=== PATIENT | female | born 1990 | race Caucasian/White ===

== ENCOUNTER 2017-01-14 07:53 | Emergency (ER) | payer BC, OTHER ==
[~2017-01-14] VITALS: Ht 162.6 cm; Wt 102.8 kg
[2017-01-14 07:57] VITALS: TEMP 36.7; Ht 162.6 cm; Wt 102.8 kg
[2017-01-14] MEDS ORDERED: SODIUM CHLORIDE 0.9% 1000ML 1,000 ML IV STA (08:11)
[2017-01-14] MEDS ORDERED: ONDANSETRON INJ 2 MG/ML 2 ML VIAL IV STA (08:11)
[2017-01-14] MEDS ORDERED: SODIUM CHLORIDE 0.9% 1000ML 1,000 ML IV ONE (08:11)
[2017-01-14] MEDS ORDERED: KETOROLAC TROMETHAMINE 30 MG/ML VIAL IV STA (08:11)
--- NOTE | 2017-01-14 08:17 | EMERGENCY ROOM VISIT NOTE ---
History Report prepared by Eder: Chaparrita Riojas Under the Supervision of: Dr. Carlos Moyer M.D. First contact with patient: 07:58 Chief Complaint: ABDOMINAL PAIN Stated Complaint: SEVERE STOMACH PAIN Nursing Triage Summary: pt reports abdominal diffuse abdominal pain with diarrhea X 2 days , started last night with additional NV History of Present Illness The patient is a 27 year old female who presents to the Emergency Room with complaints of worsening diffuse abdominal pain for the past two days. She has a history of IBS and states that she has chronic diarrhea and often has abdominal pains. Over the past two days she has been experiencing pain that is much more severe. She states, "It feels like my stomach is in a big knot." She woke up with pain around 1:30am today. She had multiple bowel movements and felt slightly better but still has pain. Laying down exacerbates her pain. The patient is complaining of nausea and had two episodes of vomiting last night. 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 She rates her current pain as an 8/10 in severity. The patient denies back pain, urinary symptoms, hematochezia, and melena. She denies chance of and has a history of a tubal ligation. She has had 3 C-sections and denies any other abdominal surgeries. The patient denies any current chest pain, but states that she had some "weird chest pains" last week. Source of History: patient Onset: 2 days ago Position: abdomen Symptom Intensity: 8/10 Timing: worsening Modifying Factors (Worsening): other (laying flat) Modifying Factors (Relieving): defecation Associated Symptoms: + chest pain, + nausea, + vomiting, No back pain, No melena, No hematochezia, No urinary symptoms Review of Systems See HPI for pertinent positives & negatives. A total of 10 systems reviewed and were otherwise negative. Past Medical & Surgical Medical Problems: (1) (2) uterine contractions in second trimester, antepartum Surgical Problems: (1) Previous section Old medical records were reviewed. Nurse's notes were reviewed and I agree with. Family History Cancer Hypertension Social History Smoking Status: Never Smoker Alcohol Use: none Marital Status: single Housing Status: lives with family Occupation Status: employed Current/Historical Medications No Active Prescriptions or Reported Meds Allergies Coded Allergies: No Known Allergies (Unverified , 01/14/17) Physical Exam Vital Signs Date Time Temp Pulse Resp B/P (MAP) Pulse Ox O2 Delivery O2 Flow Rate FiO2 01/14/17 12:49 64 20 133/71 97 Room Air 01/14/17 11:39 59 18 131/74 99 Room Air 01/14/17 09:55 61 18 133/71 98 Room Air 01/14/17 07:57 36.7 83 18 121/81 98 Room Air Physical Exam General: Well developed well nourished non ill appearing young female in no acute distress, breathing comfortably on room air. Normal speech HEENT: Normal cephalic atraumatic. Pupils are equal round and reactive to light. Extraocular movements are intact. Oropharynx is pink with moist mucous membranes. No swelling of the mouth lips or tongue. Neck: Supple with a midline trachea. No meningeal signs or stiffness, no JVD or bruits. No Stridor. Chest: Clear to auscultation bilaterally. No wheezes or rhonchi. No increased work of breathing. Heart: regular rate and rhythm. Abdomen: Soft, mildly diffusely tender, no peritonitis, nondistended without rebound guarding or rigidity. Extremities: No cyanosis clubbing or edema. No calf tenderness or assymetry Spine/Back. Non tender to palpation. No CVA tenderness Skin: Good turgor without rashes. Neurologic exam: Cranial nerves two through 12 are intact. Motor and sensation are intact and symmetrical throughout. Medical Decision & Procedures ER Provider Diagnostic Interpretation: Radiology results as stated below per my review and radiologist interpretation: ABDOMEN AND PELVIS CT WITH IV CONTRAST CT DOSE: 809.42 mGy.cm HISTORY: Lower abdominal pain. eval for appy, diverticulitis TECHNIQUE: Multiaxial CT images of the abdomen and pelvis were performed following the use of intravenous contrast. A dose lowering technique was utilized adhering to the principles of ALARA. COMPARISON STUDY: Abdomen and pelvis CT 12/18/2013. FINDINGS: Mild dependent changes seen at the lung bases. The spleen remains mildly enlarged measuring 13.5 cm in length. The liver, gallbladder, left kidney, adrenal glands, and pancreas are unremarkable. No retroperitoneal lymphadenopathy. A 3 mm stone within the lower pole of the right kidney. No ureteral stones. No hydronephrosis. The bladder, uterus, and ovaries are within normal limits. No pelvic free fluid. No bowel wall thickening or obstruction. Normal caliber appendix. No periappendiceal fat stranding. IMPRESSION: 1. No bowel wall thickening or obstruction. 2. Normal appendix. 3. Stable mild splenomegaly. 4. Right-sided nephrolithiasis. No hydronephrosis. Electronically signed by: Luis Angel Chery M.D. 01/14/2017 11:32 AM Laboratory Results 01/14/17 08:25 Red Blood Count 4.69, Mean Corpuscular Volume 86.4, Mean Corpuscular Hemoglobin 29.0, Mean Corpuscular Hemoglobin Concent 33.6, Mean Platelet Volume 10.2, Neutrophils (%) (Auto) 77.0, Lymphocytes (%) (Auto) 16.3, Monocytes (%) (Auto) 5.7, Eosinophils (%) (Auto) 0.6, Basophils (%) (Auto) 0.3, Neutrophils # (Auto) 6.02, Lymphocytes # (Auto) 1.28, Monocytes # (Auto) 0.45, Eosinophils # (Auto) 0.05, Basophils # (Auto) 0.02 01/14/17 08:25 Test 01/14/17 08:15 01/14/17 08:25 01/14/17 08:31 Urine Color YELLOW Urine Appearance CLEAR (CLEAR) Urine pH 7.5 (4.5-7.5) Urine Specific [place] 1.020 (1.000-1.030) Urine Protein NEG (NEG) Urine Glucose (UA) NEG (NEG) Urine Ketones NEG (NEG) Urine Occult Blood TRACE (NEG) Urine Nitrite NEG (NEG) Urine Bilirubin NEG (NEG) Urine Urobilinogen NEG (NEG) Urine Leukocyte Esterase NEG (NEG) Urine WBC (Auto) 1-5 /hpf (0-5) Urine RBC (Auto) 0-4 /hpf (0-4) Urine Hyaline Casts (Auto) 1-5 /lpf (0-5) Urine Epithelial Cells (Auto) >30 /lpf (0-5) Urine Bacteria (Auto) 1+ (NEG) White Blood Count 7.83 K/uL (4.8-10.8) Red Blood Count 4.69 M/uL (4.2-5.4) Hemoglobin 13.6 g/dL (12.0-16.0) Hematocrit 40.5 % (37-47) Mean Corpuscular Volume 86.4 fL (80-100) Mean Corpuscular Hemoglobin 29.0 pg (25-34) Mean Corpuscular Hemoglobin Concent 33.6 g/dl (32-36) Platelet Count 247 K/uL (130-400) Mean Platelet Volume 10.2 fL (7.4-10.4) Neutrophils (%) (Auto) 77.0 % Lymphocytes (%) (Auto) 16.3 % Monocytes (%) (Auto) 5.7 % Eosinophils (%) (Auto) 0.6 % Basophils (%) (Auto) 0.3 % Neutrophils # (Auto) 6.02 K/uL (1.4-6.5) Lymphocytes # (Auto) 1.28 K/uL (1.2-3.4) Monocytes # (Auto) 0.45 K/uL (0.11-0.59) Eosinophils # (Auto) 0.05 K/uL (0-0.5) Basophils # (Auto) 0.02 K/uL (0-0.2) RDW Standard Deviation 41.7 fL (36.4-46.3) RDW Coefficient of Variation 13.3 % (11.5-14.5) Immature Granulocyte % (Auto) 0.1 % Immature Granulocyte # (Auto) 0.01 K/uL (0.00-0.02) Anion Gap 6.0 mmol/L (3-11) Est Creatinine Clear Calc Drug Dose 133.3 ml/min Estimated GFR () 128.7 Estimated GFR (Non- 111.0 BUN/Creatinine Ratio 14.7 (10-20) Calcium Level 9.1 mg/dl (8.5-10.1) Total Bilirubin 0.3 mg/dl (0.2-1) Direct Bilirubin < 0.1 mg/dl (0-0.2) Aspartate Amino Transf (AST/SGOT) 15 U/L (15-37) Alanine Aminotransferase (ALT/SGPT) 20 U/L (12-78) Alkaline Phosphatase 87 U/L (45-117) Total Protein 8.3 gm/dl (6.4-8.2) Albumin 4.0 gm/dl (3.4-5.0) Lipase 111 U/L (73-393) Human Chorionic Gonadotropin, Qual NEG (NEG) Bedside Troponin I < 0.030 ng/ml (0-0.045) Laboratory studies as stated above per my review. Medications Administered Medications (Trade) Dose Ordered Sig/Faiza Route Start Time Stop Time Status Last Admin Dose Admin Sodium Chloride 1,000 ml @ 999 mls/hr Q1H1M STAT IV 01/14/17 08:11 01/14/17 09:11 DC 01/14/17 08:11 999 MLS/HR Sodium Chloride 1,000 ml @ 200 mls/hr Q5H ONCE IV 01/14/17 08:11 01/14/17 13:01 DC 01/14/17 08:11 200 MLS/HR Ketorolac Tromethamine (Toradol Inj) 30 mg NOW STAT IV 01/14/17 08:11 01/14/17 08:12 DC 01/14/17 08:36 30 MG Ondansetron HCl (Zofran Inj) 4 mg NOW STAT IV 01/14/17 08:11 01/14/17 08:12 DC 01/14/17 08:36 4 MG Morphine Sulfate (MoRPHine SULFATE INJ) 4 mg NOW STAT IV 01/14/17 10:25 01/14/17 10:26 DC 01/14/17 10:33 4 MG ECG Indication: abdominal pain Rate (beats per minute): 78 Rhythm: normal sinus Findings: no acute ischemic change, no ectopy Comparison ECG Date: no prior available ED Course 0804: Past medical records reviewed. The patient was evaluated in room A12B, and a complete history and physical examination were performed. 0811: Zofran 4 mg IV, Toradol 30 mg IV, NSS 1000 ml @ 200 mls/hr IV, NSS 1000 ml @ 999 mls/hr IV 0856: I reassessed the patient and she is resting comfortably. 1021: The patient is complaining of worsening pain. 1025: Morphine sulfate 4 mg IV 1234: I reassessed the patient at this time. She is feeling better and resting comfortably. I discussed the results and treatment plan with the patient. I answered all pertaining questions that she had. She expressed understanding and verbalized agreement. The patient will be discharged home. Medical Decision Differential diagnoses includes IBS, infection, gallbladder disease, diverticulitis, UTI, . This patient comes in as described above. She was placed in room A12. She is here for treatment and evaluation of diffuse abdominal pain. She does have a history of IBS. On exam, she is minimally diffusely tender and has no peritonitis. IV access established was hydrated with normal saline. She was given Toradol 30 mg IV and Zofran 4 mg IV. Blood work was obtained as well as urinalysis and culture and test. I did an EKG as well as she said she had chest pain a couple days ago. EKG is unremarkable and does not suggest acute coronary syndrome or arrhythmia. She has no fever or white count to suggest infection. She has no acute electrolyte or metabolic abnormality. She is not . She's had nothing to suggest UTI. With her symptoms persisting, I did do a CAT scan and she has no acute intra-abdominal processes. She has no findings suggest infection or appendicitis. She did receive IV morphine and IV Zofran as feeling much better. This may be related or IBS. I will have her drink plenty of fluids and use [id number] pain medication but do not exceed the [id number] recommended dosages. Return if increasing pain, worsening of symptoms, fever or chills, any new problems or concerns. The patient and her were happy the plan and she was discharged to home. Medication Reconcilliation Current Medication List: was personally reviewed by me Blood Pressure Screening Patient's blood pressure: Normal blood pressure Impression Primary Impression: Diffuse abdominal pain Scribe Attestation The scribe's documentation has been prepared under my direction and personally reviewed by me in its entirety. I confirm that the note above accurately reflects all work, treatment, procedures, and medical decision making performed by me. Departure Information Dispostion Home / Self-Care Prescriptions No Active Prescriptions or Reported Meds Referrals Nic Bal M.D. (PCP) Forms HOME CARE DOCUMENTATION FORM, IMPORTANT VISIT INFORMATION Patient Instructions My [facility] Additional Instructions Rest. Drink plenty of fluids. Return if: Worsening of symptoms, fever or chills, increasing pain, not tolerating fluids, vomiting, any new problems concerns Use [id number] ibuprofen and/or acetaminophen/Tylenol Do not exceed the [id number] recommended dosages and do not take with any other medications that contain acetaminophen/Tylenol Follow-up with your doctor in 1-2 days for recheck
[2017-01-14 08:35] LABS: BASO % 0.3 %; BASO ABS # 0.02 K/uL (0-0.2); COMPLETE YES; EOS % 0.6 %; HEMATOCRIT 40.5 % (37-47); IG% 0.1 %; LYMPH % 16.3 %; LYMPH ABS # 1.28 K/uL (1.2-3.4); MEAN CELL VOLUME 86.4 fL (80-100); MEAN CORPUSCULAR HGB CONC 33.6 g/dl (32-36); MEAN PLATELET VOLUME 10.2 fL (7.4-10.4); MONO % 5.7 %; PLATELET COUNT 247 K/uL (130-400); RED BLOOD COUNT 4.69 M/uL (4.2-5.4); WHITE BLOOD COUNT 7.83 K/uL (4.8-10.8)
[2017-01-14 08:35] LABS: URINE APPEARANCE CLEAR (CLEAR); URINE BILIRUBIN NEG (NEG); URINE COLOR YELLOW; URINE EPITHELIAL CELL AUTO >30 /lpf (0-5); URINE NITRITE NEG (NEG); URINE PH 7.5 (4.5-7.5); UROBILINOGEN NEG (NEG)
[2017-01-14 08:41] LABS: MANUAL MICROSCOPIC REQUIRED? NO; REVIEW REQ? YES
[2017-01-14 08:49] LABS: PREG INTERNAL NEGATIVE QC NEG CLEAR BACKGROUND; PREG INTERNAL POSITIVE QC POS CONTROL LINE
[2017-01-14 08:54] LABS: BUN/CREATININE RATIO 14.7 (10-20); CALCIUM 9.1 mg/dl (8.5-10.1); CREATININE 0.74 mg/dl (0.60-1.20)
[2017-01-14 09:07] LABS: ALKALINE PHOSPHATASE 87 U/L (45-117); ALT/SGPT 20 U/L (12-78); AST/SGOT 15 U/L (15-37)
[2017-01-14] MEDS ORDERED: MoRPHine SULFATE 4 MG/ML 1 ML CARP\\VIAL IV STA (10:25)
--- NOTE | 2017-01-14 11:33 | DIAGNOSTIC IMAGING REPORT ---
ABDOMEN AND PELVIS CT WITH IV CONTRAST CT DOSE: 809.42 mGy.cm HISTORY: Lower abdominal pain. eval for appy, diverticulitis TECHNIQUE: Multiaxial CT images of the abdomen and pelvis were performed following the use of intravenous contrast. A dose lowering technique was utilized adhering to the principles of ALARA. COMPARISON STUDY: Abdomen and pelvis CT 12/18/2013. FINDINGS: Mild dependent changes seen at the lung bases. The spleen remains mildly enlarged measuring 13.5 cm in length. The liver, gallbladder, left kidney, adrenal glands, and pancreas are unremarkable. No retroperitoneal lymphadenopathy. A 3 mm stone within the lower pole of the right kidney. No ureteral stones. No hydronephrosis. The bladder, uterus, and ovaries are within normal limits. No pelvic free fluid. No bowel wall thickening or obstruction. Normal caliber appendix. No periappendiceal fat stranding. IMPRESSION: 1. No bowel wall thickening or obstruction. 2. Normal appendix. 3. Stable mild splenomegaly. 4. Right-sided nephrolithiasis. No hydronephrosis. Electronically signed by: Luis Angel Chery M.D. 01/14/2017 11:32 AM Dictated Date/Time: 01/14/2017 11:26 AM
[2017-01-14 12:49] VITALS: BP 133/71; PULSE 64; O2SAT 97
== END 2017-01-14 12:54 | disposition home or self-care (01) ==
LOC: C.EDB 07:54 → C.EDA 12:54
DX: R10.9 Unspecified abdominal pain (principal); Z82.49 Family history of ischemic heart disease and other diseases of the circulatory system

== ENCOUNTER 2020-07-13 22:21 | Observation (INO) ==
[2020-07-13] MEDS ORDERED: ONDANSETRON INJ 2 MG/ML 2 ML VIAL IV STA (22:42)
[2020-07-13] MEDS ORDERED: ACETAMINOPHEN 1,000 MG/100 ML VIAL IV STA (22:42)
[2020-07-13] MEDS ORDERED: HYDROmorphone INJ 1 MG/ML SYRINGE IV STA (22:42)
[2020-07-13] MEDS: SODIUM CHLORIDE 0.9% 1000ML 1,000 ML IV SCH (23:10)
[2020-07-13] MEDS ORDERED: CEFEPIME 2,000 MG/20 ML VIAL IV STA (23:14)
[2020-07-13 23:19] LABS: Basophils # (auto) 0.01 K/uL (0-0.2); Basophils % (auto) 0.1 %; Hematocrit (blood only) 35.5 % (37-47); Hemoglobin 11.8 g/dL (12.0-16.0); Immature Granulocytes # (auto) 0.02 K/uL (0.00-0.02); Immature Granulocytes % (auto) 0.1 %; Lymphocytes % (auto) 2.8 %; Mean Corpuscular Hemoglobin 28.6 pg (25-34); Mean Corpuscular Hgb Conc 33.2 g/dL (32-36); Monocytes % (auto) 0.7 %; Neutrophils # (auto) 13.99 K/uL (1.4-6.5); Neutrophils % (auto) 96.3 %; Platelet Count 227 K/uL (130-400); RDW Coefficient of Variation 13.3 % (11.5-14.5); RDW Standard Deviation 42.1 fL (36.4-46.3); Red Blood Count 4.13 M/uL (4.2-5.4); White Blood Count 14.52 K/uL (4.8-10.8)
[2020-07-13 23:37] LABS: Albumin Level 3.4 gm/dl (3.4-5.0); BUN Creatinine Ratio 11.2 (10-20); Calcium 8.8 mg/dl (8.5-10.1); Creatinine Clr Calc Pharmacy 123.2 ml/min; Est GFR (African American) 100.8; Potassium 3.6 mmol/L (3.5-5.1)
[2020-07-13 23:40] LABS: Albumin Globulin Ratio 0.8 (0.9-2); Bilirubin,Total 0.6 mg/dl (0.2-1); Globulin 4.1 gm/dl (2.5-4.0); Total Protein 7.5 gm/dl (6.4-8.2)
[2020-07-14] MEDS: SODIUM CHLORIDE 0.9% 1000ML 1,000 ML IV SCH ×3 (00:13→15:31)
[2020-07-14 00:24] LABS: Appearance Urine Clear (Clear); Bacteria Urine Automated 4+ (Negative); Bilirubin Urine Negative (Negative); Blood Urine 2+ (Negative); Color Urine Yellow; Epithelial Cell Urine Auto >30 /lpf (0-5); Glucose Urine UA Negative (Negative); Ketones Urine Negative (Negative); Leukocyte Esterase Urine 1+ (Negative); Nitrite Urine Positive (Negative); Protein Urine Trace (Negative); RBC Urine Automated 0-4 /hpf (0-4); Urobilinogen Urine Negative (Negative); WBC Urine Automated >30 /hpf (0-5); pH Urine 5.5 (4.5-7.5)
--- NOTE | 2020-07-14 00:40 | Emergency Department Note ---
History of Present Illness General Chief complaint: Kidney Stone Stated complaint: kidney stone Time Seen by Provider: 07/13/20 22:30 Source: patient Mode of arrival: ambulatory Limitations: no limitations History of Present Illness Maximum Pain Intensity: 10 This patient is a 30-year-old female who presents to the emergency department for evaluation of fever and kidney stone. Patient states that she was seen her earlier today for a right-sided kidney stone. Pain was mostly controlled when she was sent home, however after returning home she developed a fever and vomiting. She has been unable to keep anything down including her medications. She states that she had chills and felt feverish, and temperature at home was 103 F. She has tried taking 2 oxycodone as well as 2 ibuprofen but was unable to keep them down. Patient states that pain is uncontrolled and rates her current discomfort a 10/10. She did not have a fever prior to her earlier visit. She states that nothing has helped her pain. She denies any history of kidney stones prior to this. Home Medications Medication Instructions Recorded Confirmed Type oxycodone 5 mg PO Q4H PRN #15 tab 07/13/20 07/13/20 Rx sertraline 50 mg PO HS 07/13/20 07/13/20 History Allergies Allergy/AdvReac Type Severity Reaction Status Date / Time No Known Allergies Allergy Verified 07/13/20 22:47 Past Med/Surg History Medical History (Updated 07/14/20 @ 06:12 by Lucina Herrera PA-C) Depression History of pneumonia IBS (irritable bowel syndrome) uterine contractions in second trimester, antepartum Right lower quadrant abdominal pain Vaginal bleeding Surgical History Previous section Family History Other Hypertension Social History Smoking Status: Never smoker Second Hand Exposure: No; Do You Dip or Chew Tobacco: No; Tobacco Cessation Education Requested by Patient: No Hx Alcohol Use: Yes Hx Substance Use: No Preferred Language: Sudanese Beliefs That Will Affect Care: None marital status: Current Living Situation: Family current occupational status: employed Other Information That Helps Us Care for You: No Feels Safe at Home: Yes Safety Concerns: Feels Safe At This Time Assistive Devices: None Review of Systems A total of 10 systems reviewed and were otherwise negative Physical Exam Vital Signs Vital Signs - 24 hr 07/13/20 22:23 07/13/20 22:33 07/13/20 22:52 Temperature 35.9 C L 37.2 C Temperature Source Temporal Artery Scan Oral Pulse Rate 145 H 131 H Pulse Rate from SpO2 Sensor 130 H Respiratory Rate 14 20 Respiratory Depth Normal Blood Pressure 132/82 125/85 Blood Pressure Mean 98 98 Pulse Oximetry 95 95 Oxygen Delivery Method Room Air Sepsis Recent Fever Within 48 Hours Yes Sepsis New/Unexplained Change in Mental Status No Sepsis Action Taken by Nursing Physician Notified 07/13/20 23:14 07/13/20 23:30 07/14/20 00:30 Temperature Temperature Source Pulse Rate 111 H 103 H 96 H Pulse Rate from SpO2 Sensor 111 H 105 H 97 H Respiratory Rate 20 20 21 Respiratory Depth Blood Pressure 103/55 L 111/55 L 117/56 L Blood Pressure Mean 71 73 76 Pulse Oximetry 94 94 96 Oxygen Delivery Method Room Air Sepsis Recent Fever Within 48 Hours Sepsis New/Unexplained Change in Mental Status Sepsis Action Taken by Nursing VITALS: Vitals are noted on the nurse's note and reviewed by myself. Vital signs stable. GENERAL: This is a 30-year-old female, ill-appearing, well-developed well- nourished. SKIN: The skin was without rashes. EYES: Pupils equal round and reactive to light and accommodation. NOSE: Patent, turbinates without inflammation or discharge. MOUTH: Mucous membranes slightly dry. NECK: Supple without nuchal rigidity. No lymphadenopathy. HEART: Regular rate and rhythm without murmurs gallops or rubs. LUNGS: Clear to auscultation bilaterally without wheezes, rales or rhonchi. ABDOMEN: Positive bowel sounds x 4. Soft, mild tenderness in the right lower quadrant. No guarding or rebound tenderness. Right CVA tenderness. EXTREMITIES: No pitting edema of the lower extremities. NEURO: Patient was alert and oriented to person place and time. Course Consultations Consultation #1: Dr. Gallagher - urology Administered Medications Acetaminophen (Acetaminophen 325 Mg Tab) 650 mg PO Q4H PRN PRN Reason: pain/fever Stop: 08/13/20 01:26 Last Admin: 07/14/20 08:18 Dose: 650 mg Documented by: [id number] Ceftriaxone Sodium 2,000 mg/ (Dextrose) 70 mls @ 100 mls/hr IV DAILY PAMELA; Protocol Stop: 07/24/20 08:59 Last Infusion: 07/14/20 09:08 Dose: 0 mls/hr Documented by: [id number] Admin: 07/14/20 08:18 Dose: 100 mls/hr Documented by: [id number] Sodium Chloride (Nss 1000ml) 1,000 mls @ 80 mls/hr IV .[id number] [facility] Stop: 08/13/20 01:26 Last Admin: 07/14/20 15:31 Dose: 80 mls/hr Documented by: [id number] Infusion: 07/14/20 15:31 Dose: 80 mls/hr Documented by: [id number] Admin: 07/14/20 03:49 Dose: 80 mls/hr Documented by: [id number] Famotidine 20 mg/ Syringe 5 mls @ 2.5 mls/min IV Q12H [facility] Stop: 08/13/20 08:59 Last Admin: 07/14/20 09:03 Dose: 2.5 mls/min Documented by: [id number] Ondansetron HCl (Ondansetron Inj 2 Mg/Ml 2 Ml Vial) 4 mg IV Q6H PRN PRN Reason: Nausea Stop: 08/13/20 01:26 Last Admin: 07/14/20 07:14 Dose: 4 mg Documented by: [id number] Discontinued Medications Hydromorphone HCl (Hydromorphone Inj 1 Mg/Ml Syringe) 1 mg IV NOW STA Stop: 07/13/20 22:43 Last Admin: 07/13/20 23:10 Dose: 1 mg Documented by: [id number] Hydromorphone HCl (Hydromorphone Inj 0.5 Mg/0.5 Ml Syr) 0.5 mg IV Q3H PRN PRN Reason: Severe Pain Stop: 07/28/20 01:26 Last Admin: 07/14/20 12:08 Dose: 0.5 mg Documented by: [id number] Admin: 07/14/20 05:18 Dose: 0.5 mg Documented by: [id number] Sodium Chloride (Nss 1000ml) 1,000 mls @ 999 mls/hr IV .[id number] [facility] Stop: 07/14/20 00:41 Last Infusion: 07/14/20 01:10 Dose: 0 mls/hr Documented by: [id number] Admin: 07/14/20 00:13 Dose: 999 mls/hr Documented by: [id number] Infusion: 07/14/20 00:13 Dose: 0 mls/hr Documented by: [id number] Admin: 07/13/20 23:10 Dose: 999 mls/hr Documented by: [id number] Acetaminophen (Ofirmev) 1,000 mg in 100 mls @ 400 mls/hr IV NOW STA Stop: 07/13/20 22:56 Last Infusion: 07/13/20 23:26 Dose: 0 mls/hr Documented by: [id number] Admin: 07/13/20 23:10 Dose: 400 mls/hr Documented by: [id number] Cefepime HCl (Maxipime) 2,000 mg in 20 mls @ 5 mls/min IV NOW STA Stop: 07/13/20 23:17 Last Admin: 07/13/20 23:34 Dose: 5 mls/min Documented by: [id number] Promethazine HCl 6.25 mg/ (Sodium Chloride) 50.25 mls @ 204 mls/hr IV ONCE PRN PRN Reason: PACU Use Only-Nausea/Vomiting Stop: 07/14/20 11:02 Last Infusion: 07/14/20 04:35 Dose: 0 mls/hr Documented by: [id number] Admin: 07/14/20 03:21 Dose: 204 mls/hr Documented by: [id number] Promethazine HCl 6.25 mg/ (Sodium Chloride) 50.25 mls @ 201 mls/hr IV NOW STA Stop: 07/14/20 12:32 Last Infusion: 07/14/20 14:21 Dose: 0 mls/hr Documented by: [id number] Admin: 07/14/20 14:05 Dose: 201 mls/hr Documented by: [id number] Ketorolac Tromethamine (Ketorolac Tromethamine 15 Mg/Ml Vial) 15 mg IV NOW ONE Stop: 07/14/20 15:48 Last Admin: 07/14/20 16:00 Dose: 15 mg Documented by: [id number] Ondansetron HCl (Ondansetron Inj 2 Mg/Ml 2 Ml Vial) 4 mg IV NOW STA Stop: 07/13/20 22:43 Last Admin: 07/13/20 23:10 Dose: 4 mg Documented by: [id number] Medical Decision Making Differential Diagnosis Differential diagnosis includes sepsis, infected stone, UTI, pyelonephritis, dehydration, electrolyte imbalance, kidney injury, among others. Medical Records Attestation: I reviewed the patient's medical records. Patient seen here earlier today, no leukocytosis or fever at that time. Urinalysis had been performed and showed 1+ bacteria but greater than 30 epithelial cells. Home Medications Current Medication List: was personally reviewed by me Laboratory Data Attestation: I reviewed the patient's lab results. Result diagrams: 07/13/20 23:08 07/13/20 23:08 Lab Results 07/13/20 07/13/20 07/13/20 Range/Units 23:08 23:08 23:08 WBC 14.52 H (4.8-10.8) K/uL RBC 4.13 L (4.2-5.4) M/uL Hgb 11.8 L (12.0-16.0) g/dL Hct 35.5 L (37-47) % MCV 86.0 (80-100) fL MCH 28.6 (25-34) pg MCHC 33.2 (32-36) g/dL RDW Std Deviation 42.1 (36.4-46.3) fL RDW Coeff of Al 13.3 (11.5-14.5) % Plt Count 227 (130-400) K/uL MPV 10.0 (7.4-10.4) fL Immature Gran % (Auto) 0.1 % Neut % (Auto) 96.3 % Lymph % (Auto) 2.8 % Maverick % (Auto) 0.7 % Eos % (Auto) 0.0 % Baso % (Auto) 0.1 % Neut # (Auto) 13.99 H (1.4-6.5) K/uL Lymph # (Auto) 0.40 L (1.2-3.4) K/uL Ma[place]ick # (Auto) 0.10 L (0.11-0.59) K/uL Eos # (Auto) 0.00 (0-0.5) K/uL Baso # (Auto) 0.01 (0-0.2) K/uL Immature Gran # (Auto) 0.02 (0.00-0.02) K/uL Sodium 140 (136-145) mmol/L Potassium 3.6 (3.5-5.1) mmol/L Chloride 109 H (98-107) mmol/L Carbon Dioxide 23 (21-32) mmol/L Anion Gap 8.0 (3-11) BUN 10 (7-18) mg/dl Creatinine 0.89 (0.6-1.2) mg/dl Est Cr Clr Drug Dosing 123.2 ml/min Est GFR ( Amer) 100.8 Est GFR (Non-Af Amer) 87.0 BUN/Creatinine Ratio 11.2 (10-20) Glucose 124 H (70-99) mg/dl Lactate 2.3 H* (0.4-2.0) mmol/L Calcium 8.8 (8.5-10.1) mg/dl Total Bilirubin 0.6 (0.2-1) mg/dl AST 9 L (15-37) U/L ALT 24 (12-78) U/L Alkaline Phosphatase 97 (45-117) U/L Total Protein 7.5 (6.4-8.2) gm/dl Albumin 3.4 (3.4-5.0) gm/dl Globulin 4.1 H (2.5-4.0) gm/dl Albumin/Globulin Ratio 0.8 L (0.9-2) Urine Color Urine Appearance (Clear) Urine pH (4.5-7.5) Ur Specific [place] (1.000-1.030) Urine Protein (Negative) Urine Glucose (UA) (Negative) Urine Ketones (Negative) Urine Blood (Negative) Urine Nitrite (Negative) Urine Bilirubin (Negative) Urine Urobilinogen (Negative) Ur Leukocyte Esterase (Negative) Urine WBC (Auto) (0-5) /hpf Urine RBC (Auto) (0-4) /hpf U Hyaline Cast (Auto) (0-5) /lpf U Epithel Cells (Auto) (0-5) /lpf Urine Bacteria (Auto) (Negative) COVID-19 Eval Order SARS-CoV-2, RNA, NAAT (NEGATIVE) 07/13/20 07/13/20 07/14/20 Range/Units 23:37 23:37 00:01 WBC (4.8-10.8) K/uL RBC (4.2-5.4) M/uL Hgb (12.0-16.0) g/dL Hct (37-47) % MCV (80-100) fL MCH (25-34) pg MCHC (32-36) g/dL RDW Std Deviation (36.4-46.3) fL RDW Coeff of Al (11.5-14.5) % Plt Count (130-400) K/uL MPV (7.4-10.4) fL Immature Gran % (Auto) % Neut % (Auto) % Lymph % (Auto) % Maverick % (Auto) % Eos % (Auto) % Baso % (Auto) % Neut # (Auto) (1.4-6.5) K/uL Lymph # (Auto) (1.2-3.4) K/uL Ma[place]ick # (Auto) (0.11-0.59) K/uL Eos # (Auto) (0-0.5) K/uL Baso # (Auto) (0-0.2) K/uL Immature Gran # (Auto) (0.00-0.02) K/uL Sodium (136-145) mmol/L Potassium (3.5-5.1) mmol/L Chloride (98-107) mmol/L Carbon Dioxide (21-32) mmol/L Anion Gap (3-11) BUN (7-18) mg/dl Creatinine (0.6-1.2) mg/dl Est Cr Clr Drug Dosing ml/min Est GFR ( Amer) Est GFR (Non-Af Amer) BUN/Creatinine Ratio (10-20) Glucose (70-99) mg/dl Lactate (0.4-2.0) mmol/L Calcium (8.5-10.1) mg/dl Total Bilirubin (0.2-1) mg/dl AST (15-37) U/L ALT (12-78) U/L Alkaline Phosphatase (45-117) U/L Total Protein (6.4-8.2) gm/dl Albumin (3.4-5.0) gm/dl Globulin (2.5-4.0) gm/dl Albumin/Globulin Ratio (0.9-2) Urine Color Yellow Urine Appearance Clear (Clear) Urine pH 5.5 (4.5-7.5) Ur Specific [place] 1.020 (1.000-1.030) Urine Protein Trace H (Negative) Urine Glucose (UA) Negative (Negative) Urine Ketones Negative (Negative) Urine Blood 2+ H (Negative) Urine Nitrite Positive A (Negative) Urine Bilirubin Negative (Negative) Urine Urobilinogen Negative (Negative) Ur Leukocyte Esterase 1+ H (Negative) Urine WBC (Auto) >30 H (0-5) /hpf Urine RBC (Auto) 0-4 (0-4) /hpf U Hyaline Cast (Auto) 0 (0-5) /lpf U Epithel Cells (Auto) >30 H (0-5) /lpf Urine Bacteria (Auto) 4+ H (Negative) [id number] SARS-[facility]-2, RNA, NAAT NEGATIVE (NEGATIVE) Imaging Data Attestation: I personally reviewed and interpreted this imaging study as follows: My Impression: KUB: Normal bowel gas pattern, no obstruction or free air. No obvious renal calculi identified. ECG Data Attestation: I personally reviewed and interpreted this ECG as follows: Indication: + tachycardia Rate (beats per minute): 132 Rhythm: + sinus tachycardia ECG Intervals/blocks: + Normal QRS ECG ST segments: + Nonspecific ST abnormalities Change: no significant change MDM Narrative Continuous monitor technician: Order was placed for continuous monitor technician. Patient was placed on the monitor technician. Patient was noted to be in sinus tachycardia at an initial rate of 130 bpm. The patient is a 30-year-old female who presents today for worsening symptoms of a kidney stone. Patient was seen here earlier today, diagnosed with a 4 mm stone at the right UVJ. After returning home, patient symptoms were not controlled and then she developed a fever. On arrival here, she is tachycardic and febrile. Blood cultures, lactate and labs were drawn. Labs revealed a leukocytosis of 14,000, mildly elevated lactate at 2.3, and urinalysis suggestive of infection with positive nitrite, 4+ bacteria. Patient treated with 30 mL/kg of IV fluids, calculated based on patient's ideal body weight due to obesity (BMI of 48). She was given 2 g of cefepime. Patient also treated with Dilaudid and Zofran for pain and nausea. Case was discussed with Dr. Gallagher of urology and Dr. Rodriguez[facility] Please see their notes for further patient care. The patient's case was discussed with Dr. Vergara, who agreed with my evaluation and treatment plan. Impression & Plan Sepsis, Calculus of distal right ureter, Urinary tract infection Discharge Plan Visit Data Chief Complaint: Kidney Stone Stated Complaint: kidney stone ED Provider: Valentín Vergara ED Midlevel Provider: Lucina Herrrea Discharge Problem: Sepsis, Calculus of distal right ureter, Urinary tract infection Patient Disposition: Admitted As Inpatient Discharge Instructions Interventions: ED Discharge Assessment Last Done: 07/14/20 01:08 Discharge Problem: Sepsis Qualifiers: Sepsis type: sepsis due to unspecified organism Sepsis acute organ dysfunction status: without acute organ dysfunction Qualified Code(s): A41.9 - Sepsis, unspecified organism Urinary tract infection Qualifiers: Urinary tract infection type: site unspecified Hematuria presence: with hematuria Qualified Code(s): N39.0 - Urinary tract infection, site not specified
[2020-07-14 00:50] LABS: Cast Urine Automated 0 /lpf (0-5)
--- NOTE | 2020-07-14 00:54 | History & Physical Report ---
Date of Service July 14, 2020 Assessment & Plan (1) Calculus of distal right ureter: 4 mm distal right ureteral calculus with mild right hydroureteronephrosis- N.p.o. Ceftriaxone 2 g IV daily Follow urine culture and sensitivities Zofran 4 mg IV every 6 hours as needed Dilaudid 0.5 mg IV every 3 hours as needed severe pain Acetaminophen 650 mg p.o. every 4 hours as needed mild pain or temperature NSS at 80 mils per hour Urology consult Dr. Gallagher Present on Admission?: Yes (2) Hydroureteronephrosis: See above Present on Admission?: Yes (3) IBS (irritable bowel syndrome): Monitor for symptoms Placed on famotidine 20 mg IV every 12 hours Present on Admission?: Yes (4) Depression: Continue sertraline Present on Admission?: Yes History of Present Illness Chief Complaint: The patient presents to the emergency department with complaint of worsening right lower quadrant pain and today developed a temperature after being seen earlier in the day in the ED Primary Care Provider: NO PCP The patient is a 30-year-old female with a past medical history including irritable bowel syndrome, morbid obesity and depression. She presented to the emergency department earlier today due to right lower quadrant pain, and was found to have a 4 mm distal right obstructing stone near the UVJ. She was discharged to home, and later on the day developed a temperature, and with worsening pain, presented to the ED for assessment. Dr. Gallagher from urology was consulted, who took the patient to the ED for treatment. Allergies Allergy/AdvReac Type Severity Reaction Status Date / Time No Known Allergies Allergy Verified 07/13/20 22:47 Home Medications Medication Instructions Recorded Confirmed Type oxycodone 5 mg PO Q4H PRN #15 tab 07/13/20 07/13/20 Rx sertraline 50 mg PO HS 07/13/20 07/13/20 History Past Med/Surg History Medical History (Updated 07/14/20 @ 04:24 by Buck Rodriguez MD) Depression History of pneumonia IBS (irritable bowel syndrome) uterine contractions in second trimester, antepartum Right lower quadrant abdominal pain Vaginal bleeding Surgical History Previous section Family History Other Hypertension Social History Smoking Status: Never smoker Second Hand Exposure: No; Do You Dip or Chew Tobacco: No; Tobacco Cessation Education Requested by Patient: No Hx Alcohol Use: Yes Hx Substance Use: No Preferred Language: Gibraltarian Beliefs That Will Affect Care: None marital status: Current Living Situation: Family current occupational status: employed Other Information That Helps Us Care for You: No Feels Safe at Home: Yes Safety Concerns: Feels Safe At This Time Assistive Devices: None Review of Systems Review of Systems: The patient denies chest pain, palpitations, shortness of breath, dyspnea on exertion, cough, lower extremity swelling, sore throat, chills, sweats, nausea, vomiting, diarrhea , constipation, blood in urine or stool, lightheadedness, dizziness, headache, memory loss, loss of consciousness, rash, abnormal bruising or bleeding, imbalance, focal or generalized weakness, numbness or tingling in arms or legs, generalized arthralgias or myalgias, back or neck pain, or night sweats. The review of systems is otherwise negative other than for that already noted above, and at least 10 systems have been reviewed. Physical Exam Physical Exam: The patient is awake, alert and oriented 3, well developed and well nourished, normocephalic and atraumatic, lying in bed and in no acute distress. HEENT--PERRL, EOMI, mucous membranes and oropharynx dry. Neck--supple. No JVD. No bruits. Thyroid normal, trachea midline, no adenopathy. Heart--normal S1 and S2. No murmurs, rubs or gallops. Lungs--clear bilaterally, no respiratory distress, no accessory muscle use. Abdomen--normal bowel sounds and soft. Tender right flank and right lower quadrant. Nondistended. Morbidly obese Extremities--no cyanosis or clubbing. No edema. Dermatologic--normal skin turgor, normal color, no abnormal lymph nodes, no rash. Neurologic--cranial nerves II through XII grossly intact. Rheumatologic--normal range of motion. Psychiatric--normal affect. Results & Data Results & Data ([facility]) Vital Signs (Past 12 Hours) Vital Signs Temp Pulse Resp BP Pulse Ox 07/14/20 00:30 96 H 21 117/56 L 96 07/13/20 23:30 103 H 20 111/55 L 94 07/13/20 23:14 111 H 20 103/55 L 94 07/13/20 22:52 99.0 F 07/13/20 22:33 131 H 20 125/85 95 07/13/20 22:23 96.6 F L 145 H 14 132/82 95 Laboratory Results Laboratory Results WBC 14.52 K/uL (4.8-10.8) H 07/13/20 23:08 RBC 4.13 M/uL (4.2-5.4) L 07/13/20 23:08 Hgb 11.8 g/dL (12.0-16.0) L 07/13/20 23:08 Hct 35.5 % (37-47) L 07/13/20 23:08 MCV 86.0 fL (80-100) 07/13/20 23:08 MCH 28.6 pg (25-34) 07/13/20 23:08 MCHC 33.2 g/dL (32-36) 07/13/20 23:08 RDW Std Deviation 42.1 fL (36.4-46.3) 07/13/20 23:08 RDW Coeff of Al 13.3 % (11.5-14.5) 07/13/20 23:08 Plt Count 227 K/uL (130-400) 07/13/20 23:08 MPV 10.0 fL (7.4-10.4) 07/13/20 23:08 Immature Gran % (Auto) 0.1 % 07/13/20 23:08 Neut % (Auto) 96.3 % 07/13/20 23:08 Lymph % (Auto) 2.8 % 07/13/20 23:08 [place] % (Auto) 0.7 % 07/13/20 23:08 Eos % (Auto) 0.0 % 07/13/20 23:08 Baso % (Auto) 0.1 % 07/13/20 23:08 Neut # (Auto) 13.99 K/uL (1.4-6.5) H 07/13/20 23:08 Lymph # (Auto) 0.40 K/uL (1.2-3.4) L 07/13/20 23:08 [place] # (Auto) 0.10 K/uL (0.11-0.59) L 07/13/20 23:08 Eos # (Auto) 0.00 K/uL (0-0.5) 07/13/20 23:08 Baso # (Auto) 0.01 K/uL (0-0.2) 07/13/20 23:08 Immature Gran # (Auto) 0.02 K/uL (0.00-0.02) 07/13/20 23:08 Sodium 140 mmol/L (136-145) 07/13/20 23:08 Potassium 3.6 mmol/L (3.5-5.1) 07/13/20 23:08 Chloride 109 mmol/L (98-107) H 07/13/20 23:08 Carbon Dioxide 23 mmol/L (21-32) 07/13/20 23:08 Anion Gap 8.0 (3-11) 07/13/20 23:08 BUN 10 mg/dl (7-18) 07/13/20 23:08 Creatinine 0.89 mg/dl (0.6-1.2) 07/13/20 23:08 Est Cr Clr Drug Dosing 123.2 ml/min 07/13/20 23:08 Est GFR ( Amer) 100.8 07/13/20 23:08 Est GFR (Non-Af Amer) 87.0 07/13/20 23:08 BUN/Creatinine Ratio 11.2 (10-20) 07/13/20 23:08 Glucose 124 mg/dl (70-99) H 07/13/20 23:08 Lactate 0.9 mmol/L (0.4-2.0) 07/14/20 01:14 Calcium 8.8 mg/dl (8.5-10.1) 07/13/20 23:08 Total Bilirubin 0.6 mg/dl (0.2-1) 07/13/20 23:08 AST 9 U/L (15-37) L 07/13/20 23:08 ALT 24 U/L (12-78) 07/13/20 23:08 Alkaline Phosphatase 97 U/L (45-117) 07/13/20 23:08 Total Protein 7.5 gm/dl (6.4-8.2) 07/13/20 23:08 Albumin 3.4 gm/dl (3.4-5.0) 07/13/20 23:08 Globulin 4.1 gm/dl (2.5-4.0) H 07/13/20 23:08 Albumin/Globulin Ratio 0.8 (0.9-2) L 07/13/20 23:08 Urine Color Yellow 07/14/20 00:01 Urine Appearance Clear (Clear) 07/14/20 00:01 Urine pH 5.5 (4.5-7.5) 07/14/20 00:01 Ur Specific [place] 1.020 (1.000-1.030) 07/14/20 00:01 Urine Protein Trace (Negative) H 07/14/20 00:01 Urine Glucose (UA) Negative (Negative) 07/14/20 00:01 Urine Ketones Negative (Negative) 07/14/20 00:01 Urine Blood 2+ (Negative) H 07/14/20 00:01 Urine Nitrite Positive (Negative) A 07/14/20 00:01 Urine Bilirubin Negative (Negative) 07/14/20 00:01 Urine Urobilinogen Negative (Negative) 07/14/20 00:01 Ur Leukocyte Esterase 1+ (Negative) H 07/14/20 00:01 Urine WBC (Auto) >30 /hpf (0-5) H 07/14/20 00:01 Urine RBC (Auto) 0-4 /hpf (0-4) 07/14/20 00:01 U Hyaline Cast (Auto) 0 /lpf (0-5) 07/14/20 00:01 U Epithel Cells (Auto) >30 /lpf (0-5) H 07/14/20 00:01 Urine Bacteria (Auto) 4+ (Negative) H 07/14/20 00:01 COVID-19 Eval Order [facility] 07/13/20 23:37 SARS-CoV-2, RNA, NAAT NEGATIVE (NEGATIVE) 07/13/20 23:37 Diagnostic Findings [facility], [id number] CT Scan Report Patient: KERON ROMERO EAdmit Date: 07/13/20MR#: [id number]: [id number]: Date: 1990City Zip: [place] [address]Yql: [birth year]Location: EDSex: FRoom/Bed:Att Phy:Diagnosis: RT SIDE PAINPri Phy: PCP,NOService Date: 07/13/20Fam Phy:Interpreting Phy: Narayan Barth MDAdmit Phy: Ordering Phy: Darrell Bell PA cc: ~ CT SCAN OF THE ABDOMEN AND PELVIS WITHOUT IV CONTRAST CLINICAL HISTORY: Right flank pain. COMPARISON STUDY: Abdominal CT dated 01/14/2017. TECHNIQUE: CT scan of the abdomen and pelvis is performed from the lung bases to the proximal femora. Images are reviewed in the axial, sagittal, and coronal planes. IV contrast was not administered for this examination. A dose lowering technique was utilized adhering to the principles of ALARA. CT DOSE: 1463.75 mGy.cm FINDINGS: Lung bases: The heart is normal in size and without pericardial effusion. The lung bases are clear. There is a small hiatal hernia. Liver: The unenhanced liver is mildly enlarged measuring 19 cm in length. The liver demonstrates diffusely diminished attenuation consistent with hepatic steatosis. Fatty sparing is seen adjacent to the gallbladder fossa. There is no intrahepatic biliary ductal dilatation. Gallbladder: Unremarkable. Spleen: The spleen is enlarged measuring 15.1 cm in length. Pancreas: Unremarkable. Adrenal glands: Unremarkable. Kidneys: The unenhanced kidneys are normal in size. There is a 4 mm obstructing calculus at the right vesicoureteral junction seen on image #393. This causes mild to moderate right hydroureteronephrosis. No additional calculi are identified in either kidney. There is no left-sided hydronephrosis. There is no evidence of contour deforming renal mass lesion. Abdominal vasculature: The abdominal aorta is normal in course and caliber. Bowel: There is no bowel obstruction. The appendix is well-visualized and normal. Peritoneum: There is no intraperitoneal free air or abdominal ascites. There is a fat-containing umbilical hernia. Lymphadenopathy: None. Pelvic viscera: The bladder is decompressed and grossly unremarkable. The uterus and adnexa are normal as visualized noting bilateral ovarian follicles. Skeletal structures: No lytic or blastic lesions are seen. Sclerotic change is noted in the sacroiliac joints. IMPRESSION: 1. There is a 4 mm obstructing calculus at the right vesicoureteral junction. This causes mild to moderate right hydroureteronephrosis. 2. No additional calculi are identified in either kidney. 3. Hepatomegaly and hepatic steatosis. 4. Splenomegaly. ACT 112: Negative or not required by law. Electronically signed by: Narayan Barth M.D. 07/13/2020 1:05 PM Dictated: 07/13/20 1300Transcribed: 07/13/20 1300 Code Status & VTE Plan Code Status Full code VTE Prophylaxis Plan VTE Prophylaxis will be ordered: Yes PG Care Time/CCT Total # of Minutes Spent Total Time Spent with Patient: Total time spent is greater than 50% in coordination of care (as documented) at patient's floor/unit and/or counseling patient: Coding Level of Care Code 57272 Initial Inpt Care Lvl 2 Diagnoses Calculus of distal right ureter N20.1 Hydroureteronephrosis N13.30 IBS (irritable bowel syndrome) K58.9 Depression F32.9
--- NOTE | 2020-07-14 02:05 | Urology Consultation ---
Date of Consultation July 14, 2020 Assessment & Plan (1) Calculus of distal right ureter: right UVJ stone with sepsis - discussed her clinical scenario and the need for emergent intervention or risk of worsening condition, possible ICU requirement, possible - discussed the role of cysto, right ureteral stent placement - she has improved substantially with resuscitation and empiric abx - I have explained that she may have passed the stone - but we cannot be certain nor wait for a repeat CT - plan for cysto, right ureteral stent placement now in this acutely ill patient History of Present Illness Attending Physician: Buck Rodriguez MD History of Present Illness 30y/o femaleadmitted through the ER secondary to fevers, tachycardia, UTI, elevated lactate, leukocytosis, obstructing right ureteral stone. Had been in the ER earlier today without SEPSIS criteria - pain had been controlled and she was d/c'ed home. Returned around midnight after experiencing high temps at home (103). Pulse racing on arrival (near 140). UA on arrival nit pos. Not re- imaged on return, but no stone passage Resuscitated with aggressive IVF and empiric abx - immediate improvement in temp and tachycardia, but remained very uncomfortable feeling no prior kidney stones -3 prior C-sections, no other surgeries Allergies Allergy/AdvReac Type Severity Reaction Status Date / Time No Known Allergies Allergy Verified 07/13/20 22:47 Home Medications Medication Instructions Recorded Confirmed Type oxycodone 5 mg PO Q4H PRN #15 tab 07/13/20 07/13/20 Rx sertraline 50 mg PO HS 07/13/20 07/13/20 History Patient History Medical History History of pneumonia IBS (irritable bowel syndrome) uterine contractions in second trimester, antepartum Right lower quadrant abdominal pain Vaginal bleeding Surgical History Previous section Family History Other Hypertension Social History Smoking Status: Never smoker Second Hand Exposure: No; Do You Dip or Chew Tobacco: No; Tobacco Cessation Education Requested by Patient: No Hx Alcohol Use: Yes Hx Substance Use: No Preferred Language: Japanese Beliefs That Will Affect Care: None marital status: Current Living Situation: Family current occupational status: employed Other Information That Helps Us Care for You: No Feels Safe at Home: Yes Safety Concerns: Feels Safe At This Time Assistive Devices: None Review of Systems Constitutional: + fever, + chills, + sweats and + body aches Respiratory: no cough and no dyspnea Cardiovascular: + palpitations Additional Comments: rapid heart rate Gastrointestinal: + abdominal pain and + nausea Genitourinary: + problem reported Musculoskeletal: + back pain Integumentary: no rash Neurologic: no unsteadiness and no falls Psychiatric: no behavioral changes Endocrine: no fatigue Physical Exam Constitutional: well developed, well nourished and + ill appearing Neck: neck nontender Respiratory: normal respiratory effort; no respiratory distress and does not use accessory muscles Cardiovascular: Rate/Rhythm: regular rate (90s) Vessels: radial pulses present Extremities: no edema Gastrointestinal (Abdomen): Inspection/Auscultation: abdomen normal to inspection Percussion/Palpation: + abdomen tender (right side) and abdomen soft; no guarding Musculoskeletal: Head/Neck/Chest: normocephalic and head atraumatic Extremities: extremities normal to inspection Skin: no rashes and no lesions Trauma: no evidence of skin trauma Neurologic: awake; not obtunded Speech / Cognition: normal speech Motor/Sensory: no tremor Psychiatric: Orientation: alert and oriented x 3 Lymphatic: no lymphadenopathy Results & Data ([facility]) Vital Signs (Past 12 Hours) Vital Signs Temp Pulse Pulse Resp BP BP Pulse Ox 07/14/20 01:28 36.9 C 93 H 20 118/73 95 07/14/20 01:00 104 H 24 117/61 94 07/14/20 00:30 96 H 21 117/56 L 96 07/13/20 23:30 103 H 20 111/55 L 94 07/13/20 23:14 111 H 20 103/55 L 94 07/13/20 22:52 37.2 C 07/13/20 22:33 131 H 20 125/85 95 07/13/20 22:23 35.9 C L 145 H 14 132/82 95 PG Care Time/CCT Total # of Minutes Spent Total Time Spent with Patient: Total time spent is greater than 50% in coordinat ion of care (as documented) at patient's floor/unit and/or counseling patient: Coding Level of Care Code 30639 Inpt Consult Level 5 Diagnoses Calculus of distal right ureter N20.1
--- NOTE | 2020-07-14 02:21 | Anesthesiology Consultation ---
Date of Service July 14, 2020 Assessment & Plan (1) Encounter for pre-operative examination: Chart Review Chart Review: Acceptable Risk for Surgery and Patient NOT seen in Pre Admission Testing Consults Requested none ASA [id number] Proposed Anesthesia Anesthesia Type: General (RSI) Risk / Benefits Reviewed With: PT / POA / Parent / Guardian, Accepts Plan and Informed Consent Obtained History Surgery Operation Date: 07/14/20 02:00 Proposed Procedures p Cystoscopy(Right) - Jignesh Gallagher MD Height/Weight Height: 5 ft 4 in Weight: 124.5 kg Allergies Allergy/AdvReac Type Severity Reaction Status Date / Time No Known Allergies Allergy Verified 07/13/20 22:47 Medications Home Medications Medication Instructions Recorded Confirmed Last Taken oxycodone 5 mg PO Q4H PRN #15 tab 07/13/20 07/13/20 07/13/20 19:30 sertraline 50 mg PO HS 07/13/20 07/13/20 07/13/20 NPO Date Last Intake of Fluids: 07/13/20 Time Last Intake of Fluids: 19:30 Date Last Intake of Solids: 07/14/20 Time Last Intake of Solids: 19:30 Past Medical History Medical History (Updated 07/14/20 @ 02:21 by Jose Crockett MD) History of pneumonia IBS (irritable bowel syndrome) uterine contractions in second trimester, antepartum Right lower quadrant abdominal pain Vaginal bleeding Exercise / Class Metabolic Activity II 4-5 Yardwork/Stairs/Walk up hill Past Family History Family History Other Hypertension Past Surgical History Surgical History Previous section Past Anesthesia History No Hx of Anesthesia Complications and No Family Hx of Anesthesia Complications History of PONV No Hx of PONV and No Hx of Motion Sickness Social History Smoking Status: Never smoker Do You Dip or Chew Tobacco: No Hx Alcohol Use: Yes alcohol intake frequency: holidays/special occasions only Hx Substance Use: No Physical Exam Vital Signs Last Vital Signs Temp 36.9 C 07/14/20 01:28 Pulse 93 H 07/14/20 01:28 Resp 20 07/14/20 01:28 BP 118/73 07/14/20 01:28 Pulse Ox 95 07/14/20 01:28 Constitutional + morbidly obese ENMT Mouth: no dentition abnormality Thyromental Distance: > or= 3.5 Finger Breadths Mallampati Class: II Neck normal visual inspection Respiratory normal respiratory effort Auscultation: lungs clear to auscultation bilaterally Cardiovascular Rate/Rhythm: regular rate and regular rhythm Psychiatric Orientation: alert Testing Laboratory Results 07/13/20 23:08 07/13/20 23:08 Urine Color Yellow 07/14/20 00:01 Urine Appearance Clear (Clear) 07/14/20 00:01 Urine pH 5.5 (4.5-7.5) 07/14/20 00:01 Ur Specific [place] 1.020 (1.000-1.030) 07/14/20 00:01 Urine Protein Trace (Negative) H 07/14/20 00:01 Urine Glucose (UA) Negative (Negative) 07/14/20 00:01 Urine Ketones Negative (Negative) 07/14/20 00:01 Urine Nitrite Positive (Negative) A 07/14/20 00:01 Ur Leukocyte Esterase 1+ (Negative) H 07/14/20 00:01 Urine WBC (Auto) >30 /hpf (0-5) H 07/14/20 00:01 Urine RBC (Auto) 0-4 /hpf (0-4) 07/14/20 00:01 U Hyaline Cast (Auto) 0 /lpf (0-5) 07/14/20 00:01 U Epithel Cells (Auto) >30 /lpf (0-5) H 07/14/20 00:01 Urine Bacteria (Auto) 4+ (Negative) H 07/14/20 00:01
[2020-07-14] MEDS ORDERED: fentaNYL citrate 100 MCG/2 ML VIAL ONE (02:28)
[2020-07-14] MEDS ORDERED: ROCURONIUM BROMIDE 10 MG/ML 5 ML VIAL IV ONE (02:52)
[2020-07-14] MEDS ORDERED: ONDANSETRON INJ 2 MG/ML 2 ML VIAL ONE (02:52)
[2020-07-14] MEDS ORDERED: PROPOFOL IV EMULSION 10 MG/ML 20 ML VIAL IV ONE (02:52)
[2020-07-14] MEDS ORDERED: SUCCINYLCHOLINE CHLORIDE 20 MG/ML 10 ML VIAL IV ONE (02:52)
[2020-07-14] MEDS ORDERED: LIDOCAINE HCL 2% 2 ML VIAL/AMP(20MG/ML) INFIL ONE (02:52)
--- NOTE | 2020-07-14 02:58 | Operative Report ---
PG Post Operative Report Pre & Post Diagnosis Operation Date: 07/14/20 02:00 Pre-Op Diagnosis: Calculus of distal right ureter Post-Op Diagnosis: Calculus of distal right ureter I identified the patient and participated in the time-out.: Yes Procedure Operation Date: 07/14/20 02:00 Actual Procedures p Cystoscopy, Right Ureteral Stent Placement(Right) - Jignesh Gallagher MD Surgeon Huey Gallagher MD High Pressure Firer none Estimated Blood Loss 0 Findings Consistent with Post-Op Diagnosis Specimens none Description of Procedure The patient was identified in the preoperative holding area, appropriate informed consents were reviewed and completed and the patient was transferred to the operative suite. Upon arrival, appropriate antibiotics and anesthesia were administered and the patient was placed in dorsal lithotomy position and prepped and draped in sterile fashion. To begin the case I passed a 22 [place] cystoscope with 30 degree lens. Inspection of the bladder was conductedhe has a healthy appearing bladder with some erythema and edema around the right ureteral orifice. There were no stones within the bladder. I turned my attention to the right UO and cannulated it with a sensor wire and a 5 [place]ian open-ended catheter. The wire advanced to the kidney without difficulty, I could feel the stone in the extreme distal ureter but was able to navigate the wire beyond it. I then placed a 6 [place] by 24 cm double-J ureteral stent seeing a good curl in the kidney as well as the bladder. There was good urine draining through the stent. I concluded the case and emptied her bladder. She was extubated and taken to the PACU in stable condition. There were no complications. I attest to the content of the Intraoperative Record and any orders documented therein. Any exceptions are noted below.
[2020-07-14] MEDS ORDERED: ATROPINE SULFATE 0.1 MG/ML 10ML SYR IV PRN (03:02)
[2020-07-14] MEDS ORDERED: ONDANSETRON INJ 2 MG/ML 2 ML VIAL IV PRN (03:02)
[2020-07-14] MEDS ORDERED: ePHEDrine sulfate 50 MG/ML AMP IV PRN (03:02)
[2020-07-14] MEDS ORDERED: PROMETHAZINE HCL 6.25 MG in SODIUM CHLORIDE 0.9% 50 ML IV PRN ×2 (03:02→17:47)
[2020-07-14] MEDS ORDERED: fentaNYL citrate 100 MCG/2 ML VIAL IV PRN (03:02)
--- NOTE | 2020-07-14 03:17 | Anesthesiology Progress Note ---
Date of Service July 14, 2020 Anesthesia Post Procedure Vital Signs Vital Signs: Temp Pulse Pulse Resp BP BP Pulse Ox 07/14/20 03:10 95 H 16 137/78 96 07/14/20 03:05 94 H 16 123/72 96 07/14/20 03:00 37.0 C 97 H 16 114/69 92 07/14/20 01:28 36.9 C 93 H 20 118/73 95 07/14/20 01:00 104 H 24 117/61 94 07/14/20 00:30 96 H 21 117/56 L 96 07/13/20 23:30 103 H 20 111/55 L 94 07/13/20 23:14 111 H 20 103/55 L 94 07/13/20 22:52 37.2 C 07/13/20 22:33 131 H 20 125/85 95 07/13/20 22:23 35.9 C L 145 H 14 132/82 95 Pain Intensity Right Flank: Pain Intensity: 5 Transfer of Care Handoff Completed per policy Notes Mental Status: alert / awake / arousable Patient Amnestic to Procedure: Yes Nausea / Vomiting: adequately controlled Pain: adequately controlled Airway Patency, RR, SpO2: stable & adequate BP & HR: stable & adequate Hydration State: stable & adequate Anesthetic Complications: no major complications apparent
[2020-07-14] MEDS: HYDROmorphone INJ 0.5 MG/0.5 ML SYR IV PRN ×2 (05:18→12:08)
[2020-07-14] MEDS: ONDANSETRON INJ 2 MG/ML 2 ML VIAL IV PRN ×2 (07:14→20:53)
--- NOTE | 2020-07-14 08:02 | Fluoroscopy Report ---
FL KUB CLINICAL HISTORY: Right ureteral stent placement. COMPARISON STUDY: KUB 07/14/2020. FLUOROSCOPY TIME: 4.4 seconds. FINDINGS: Single fluoroscopic spot image of the right side the abdomen demonstrate the proximal porti on of a right ureteral stent. This is likely in good position. The distal stent was not identified. IMPRESSION: Fluoroscopy provided for right ureteral stent placement. ACT 112: Negative or not required by law. Electronically signed by: Luis Angel Chery M.D. 07/14/2020 8:00 AM
--- NOTE | 2020-07-14 08:03 | XRay Report ---
KUB HISTORY: Preop. Right-sided kidney stone COMPARISON: Abdomen and pelvis CT 07/13/2020. FINDINGS: The bowel gas pattern is unremarkable. There are no dilated loops of small bowel to suggest an obstruction. Possible visualization of the patient's distal right ureteral stone. However, this is not well visualized due to the patient's body habitus. No renal calculi identified. No pneumoperit oneum or pneumatosis. IMPRESSION: Possible visualization of the patient's known distal right ureteral stone. ACT 112: Negative or not required by law. Electronically signed by: Luis Angel Chery M.D. 07/14/2020 8:01 AM
--- NOTE | 2020-07-14 08:03 | Hospitalist Progress Note ---
Date of Service July 14, 2020 Assessment & Plan (1) Calculus of distal right ureter: Patient is a 30 year old female with PMHx Depression and IBS that presented with known calculus of distal R ureter, returning to the ED with septic like appearance, inability to control pain while at home, and intractable nausea vomiting. Calculus of Distal R Ureter with likely Pyelonephritis -4mm stone noted at the R vesicular-ureteral junction on CT abdomen pelvis -UA Nitrate +, 2+ Blood, 4+ Bacteria -Urine culture with multiple organisms, suspect E. Coli infection in addition to skin ronit from collection -In ED given Cefepime and 2L NSS bolus -Urology consulted -S/P Emergent Cystoscopy and stent placement of the R ureter on 07/14/20 -Has yet to pass stone, continue to strain urine -Continue Rocephin 2g QD, 10-14 day course, will transition to oral once stable for dc -Continue Dilaudid 0.5mg q2h PRN pain -Add Toradol 15mg q6h PRN pain -Continue Tylenol 650mg q4h PRN pain -Continue Zofran PRN nausea -Add Phenergan PRN nausea IBS -Continue Pepcid 20mg q12h Depression -Continue Zoloft 50mg QHS Dispo: Med/Surg, likely dc tomorrow-2 day, plan for DC home once feeling better with transition to oral abx, oral pain/nausea control FEN: Regular diet, NSS 80ml/hr DVT: SCDs, out of bed Code: Full Admission and Anticipated Discharge Date Admission Date: July 14, 2020 Supervising Physician Co-Signing Physician Notes I personally examined the patient and verified all patiño points of history and exam, discussed case, and agree with decision making with Dr Cloud. still pain, nausea better. vitals noted nad but very fatigued. heent nc at mmm breathing unlabored no accessory muscles good effort skin no rashes no pallor or icterus ureterolithiasis/UTI/sepsis/presumed pyelonephritis related to stone/UTI - improving. continue abx, stent in affecting drainage. pain control/nausea control. otherwise as above Subjective Patient evaluated at the bedside this AM. Noting she was having improvements in her pain, currently 5/10 on R low back, but still having fairly significant nausea. Was having difficulty finishing her breakfast secondary to the nausea. Stated she had not vomited since she had come to the room, but was vomiting while in recovery after placement of the stent. Also noting a headache at this time, but felt that occurs typically after Dilaudid administration. Still noting dysuria. No fever, chills, SOB, chest pain, abdominal pain. Review of Systems Constitutional: no fever and no chills Respiratory: no cough, no chest congestion, no dyspnea and no pain on inspiration Cardiovascular: no chest pain, no radiating jaw, neck or arm pain, no dyspnea, no dyspnea on exertion and no palpitations Gastrointestinal: + nausea and + vomiting; no abdominal pain, no constipation and no diarrhea/loose stools Genitourinary: + dysuria and + flank pain (R ) Physical Exam Constitutional: well developed, well nourished and + ill appearing; no acute distress Eyes: PERRL, conjunctivae normal, anicteric sclerae ENMT: external ear and nose normal, oropharynx normal Respiratory: normal respiratory effort, lungs clear to auscultation Cardiovascular: RRR, no murmur, no edema Gastrointestinal (Abdomen): normal bowel sounds, soft, nontender, no hepatosplenomegaly Skin: no rashes, warm and dry Psychiatric: A+Ox3, euthymic affect Genitourinary: + CVA tenderness (R ) Results & Data Results & Data ([facility]) Vital Signs (Past 12 Hours) Vital Signs Temp Pulse Pulse Resp BP BP Pulse Ox 07/14/20 05:45 37.5 C 110 H 16 105/58 L 90 07/14/20 04:45 37 C 89 16 122/72 91 07/14/20 04:15 36.9 C 92 H 16 124/76 96 07/14/20 03:30 36.7 C 97 H 18 123/74 94 07/14/20 03:20 118 H 16 97 07/14/20 03:10 95 H 16 137/78 96 07/14/20 03:05 94 H 16 123/72 96 07/14/20 03:00 37.0 C 97 H 16 114/69 92 07/14/20 02:45 36.9 C 96 H 18 124/76 94 07/14/20 01:28 36.9 C 93 H 20 118/73 95 07/14/20 01:00 104 H 24 117/61 94 07/14/20 00:30 96 H 21 117/56 L 96 07/13/20 23:30 103 H 20 111/55 L 94 07/13/20 23:14 111 H 20 103/55 L 94 07/13/20 22:52 37.2 C 07/13/20 22:33 131 H 20 125/85 95 07/13/20 22:23 35.9 C L 145 H 14 132/82 95 Resident Activity Tracking Resident Involvement: Resident Care Provided Care Provided: Adult Hospital Medicine
[2020-07-14] MEDS: ACETAMINOPHEN 325 MG TAB PO PRN ×2 (08:18→20:09)
[2020-07-14] MEDS ORDERED: cefTRIAXone SODIUM 2,000 MG in DEXTROSE 5% 50 ML IV SCH (09:00)
[2020-07-14] MEDS: FAMOTIDINE 20 MG in SYRINGE 3 ML IV SCH ×2 (09:03→20:01)
[2020-07-14] MEDS ORDERED: PROMETHAZINE HCL 6.25 MG in SODIUM CHLORIDE 0.9% 50 ML IV STA (12:18)
--- NOTE | 2020-07-14 12:54 | Urology Progress Note ---
Date of Service July 14, 2020 Assessment & Plan (1) Calculus of distal right ureter: (2) Urinary tract infection: 30 year-old female patient admitted with right flank pain secondary to obstructing 4mm right UVJ calculus and presumed UTI. -S/p emergent cystoscopy and right ureteral stent placement overnight with Dr. Gallagher. -Currently afebrile. -Urinalysis suspicious for infection, urine culture with more than three types of organisms present, all high counts. -Blood cultures pending. -Continue supportive care and antibiotic therapy. -Will likely need 10-14 days antibiotic duration pending cultures. -Recommend close monitoring. -Will continue to follow while inpatient. Admission and Anticipated Discharge Date Admission Date: July 14, 2020 Subjective Patient status post emergent cystoscopy and right ureteral stent placement overnight with Dr. Gallagher. She reports she is feeling fatigued. Did just receive IV Dilaudid for right-sided flank pain. Denies fevers but reports chills. Reports nausea, denies vomiting. Has been out of bed, voiding spontaneously. Does have dysuria, urinary frequency/urgency. Denies hematuria. Chart review: Afebrile Remains mildly tachycardic. Labs 2/ reviewed - Wbc 14.52 Hgb 11.8 Creatinine 0.89 Urine culture with more than three types of organisms present, all high counts. Repeat collection recommended. Blood cultures pending. Patient currently on IV Ceftriaxone. Denies additional urologic concerns today. Review of Systems Constitutional: as per Subjective / HPI and + chills; no fever Gastrointestinal: as per Subjective / HPI and + nausea; no vomiting Genitourinary: as per Subjective / HPI Physical Exam Constitutional: well developed and well nourished; no acute distress Appears fatigued. Respiratory: normal respiratory effort and able to speak in complete sentences; no respiratory distress and no audible wheezes Gastrointestinal (Abdomen): Inspection/Auscultation: abdomen normal to inspection; abdomen not distended Psychiatric: Orientation: alert, oriented x 3 and cooperative Affect: euthymic affect Results & Data ([facility]) Vital Signs (Past 12 Hours) Vital Signs Temp Pulse Pulse Resp BP BP Pulse Ox 07/14/20 12:20 37.1 C 93 H 18 113/73 95 07/14/20 05:45 37.5 C 110 H 16 105/58 L 90 07/14/20 04:45 37 C 89 16 122/72 91 07/14/20 04:15 36.9 C 92 H 16 124/76 96 07/14/20 03:30 36.7 C 97 H 18 123/74 94 07/14/20 03:20 118 H 16 97 07/14/20 03:10 95 H 16 137/78 96 07/14/20 03:05 94 H 16 123/72 96 07/14/20 03:00 37.0 C 97 H 16 114/69 92 07/14/20 02:45 36.9 C 96 H 18 124/76 94 07/14/20 01:28 36.9 C 93 H 20 118/73 95 07/14/20 01:00 104 H 24 117/61 94 PG Care Time/CCT Total # of Minutes Spent Total Time Spent with Patient: Total time spent is greater than 50% in coordination of care (as documented) at patient's floor/unit and/or counseling patient: Coding Level of Care Code None Diagnoses Calculus of distal right ureter N20.1 Urinary tract infection N39.0; R31.9 Hematuria presence: with hematuria Urinary tract infection type: site unspecified (1) Urinary tract infection Hematuria presence: with hematuria Urinary tract infection type: site unspecified Qualified Code(s): N39.0 - Urinary tract infection, site not specified; R31.9 - Hematuria, unspecified
[2020-07-14] MEDS ORDERED: KETOROLAC TROMETHAMINE 15 MG/ML VIAL IV ONE (15:47)
[2020-07-14] MEDS ORDERED: HYDROmorphone INJ 0.5 MG/0.5 ML SYR IV PRN (15:49)
--- NOTE | 2020-07-14 16:02 | Electrocardiogram Report ---
Test Reason : Blood Pressure : / mmHG Vent. Rate : 132 BPM Atrial Rate : 132 BPM P-R Int : 150 ms QRS Dur : 082 ms QT Int : 300 ms P-R-T Axes : 017 007 036 degrees QTc Int : 444 ms Sinus tachycardia Nonspecific ST abnormality Abnormal ECG When compared with ECG of 26-JUN-2018 10:54, No significant change was found Confirmed by Roderick Govea ([id number]) on 07/14/2020 4:02:26 PM Referred By: REFERRED SELF Confirmed By:Roderick Govea
[2020-07-14] MEDS: KETOROLAC TROMETHAMINE 15 MG/ML VIAL IV PRN (20:53)
[2020-07-14] MEDS ORDERED: SERTRALINE HCL 50 MG TABLET PO SCH (21:00)
[2020-07-14] MEDS: CEFEPIME 2,000 MG in SYRINGE 0 ML IV SCH (22:13)
[2020-07-15] MEDS: SODIUM CHLORIDE 0.9% 1000ML 1,000 ML IV SCH (03:15)
[2020-07-15] MEDS: ONDANSETRON INJ 2 MG/ML 2 ML VIAL IV PRN (03:47)
[2020-07-15] MEDS: ACETAMINOPHEN 325 MG TAB PO PRN (03:47)
[2020-07-15] MEDS: CEFEPIME 2,000 MG in SYRINGE 0 ML IV SCH (05:37)
[2020-07-15] MEDS: KETOROLAC TROMETHAMINE 15 MG/ML VIAL IV PRN (05:39)
[2020-07-15 07:09] LABS: Basophils # (auto) 0.02 K/uL (0-0.2); Basophils % (auto) 0.4 %; Eosinophils # (auto) 0.01 K/uL (0-0.5); Eosinophils % (auto) 0.2 %; Hematocrit (blood only) 32.3 % (37-47); Hemoglobin 10.4 g/dL (12.0-16.0); Immature Granulocytes # (auto) 0.01 K/uL (0.00-0.02); Immature Granulocytes % (auto) 0.2 %; Lymphocytes # (auto) 0.57 K/uL (1.2-3.4); Lymphocytes % (auto) 12.5 %; Mean Corpuscular Hemoglobin 28.1 pg (25-34); Mean Corpuscular Hgb Conc 32.2 g/dL (32-36); Mean Corpuscular Volume 87.3 fL (80-100); Mean Platelet Volume 10.1 fL (7.4-10.4); Monocytes # (auto) 0.44 K/uL (0.11-0.59); Monocytes % (auto) 9.6 %; Neutrophils # (auto) 3.52 K/uL (1.4-6.5); Neutrophils % (auto) 77.1 %; Platelet Count 160 K/uL (130-400); RDW Coefficient of Variation 13.6 % (11.5-14.5); RDW Standard Deviation 43.7 fL (36.4-46.3); White Blood Count 4.57 K/uL (4.8-10.8)
[2020-07-15 07:15] VITALS: TEMP 98.4; O2SAT 96
--- NOTE | 2020-07-15 07:17 | Hospitalist Progress Note ---
Date of Service July 15, 2020 Assessment & Plan Admission and Anticipated Discharge Date Admission Date: July 14, 2020 Results & Data Results & Data ([facility]) Vital Signs (Past 12 Hours) Vital Signs Temp Pulse Resp BP BP Pulse Ox 07/15/20 07:14 36.9 C 72 18 119/78 96 07/15/20 03:48 37.0 C 88 14 126/79 97 07/14/20 23:52 37.0 C 94 H 14 111/66 96 07/14/20 22:41 37.6 C H 07/14/20 21:40 38.6 C H 106 H 94 07/14/20 20:26 39.2 C H 113 H 17 137/70 94
[2020-07-15 07:45] LABS: Albumin Level 2.8 gm/dl (3.4-5.0); BUN Creatinine Ratio 10.7 (10-20); Calcium 7.9 mg/dl (8.5-10.1); Creatinine Clr Calc Pharmacy 157.8 ml/min; Est GFR (Non-African American) 117.4; Potassium 3.6 mmol/L (3.5-5.1)
[2020-07-15 07:48] LABS: Albumin Globulin Ratio 0.7 (0.9-2); Bilirubin,Total 0.3 mg/dl (0.2-1); Globulin 3.9 gm/dl (2.5-4.0); Total Protein 6.7 gm/dl (6.4-8.2)
[2020-07-15] MEDS: FAMOTIDINE 20 MG in SYRINGE 3 ML IV SCH (08:22)
--- NOTE | 2020-07-15 08:44 | Urology Progress Note ---
Date of Service July 15, 2020 Assessment & Plan (1) Calculus of distal right ureter: (2) Urinary tract infection: 30 year-old female patient admitted with right flank pain secondary to obstructing 4mm right UVJ calculus and presumed UTI. -POD#1 emergent cystoscopy and right ureteral stent placement with Dr. Gallagher. -Has had some clinical improvement since procedure. -Febrile last evening, T max 39.2. -Urinalysis suspicious for infection, urine culture with more than three types of organisms present, all high counts. -Blood culture x1 with gram negative bacilli, currently on IV Cefepime. -Continue supportive care and antibiotic therapy. -Will likely need 10-14 days antibiotic duration pending cultures. -Recommend close monitoring. -Will continue to follow while inpatient. Admission and Anticipated Discharge Date Admission Date: July 14, 2020 Subjective POD #1 cystoscopy, right ureteral stent placement with Dr. Gallagher. She reports she is feeling "much better" since yesterday. She did report fever last evening, T-max 39.2. Most recent temperature 36.9. Denies chills. Currently denies pain in abdomen/flank. Denies nausea or vomiting. Has been up ambulating without dizziness/lightheadedness. Denies hematuria or dysuria. Denies urinary urgency/frequency. Overall, feeling better. Chart review: Tmax in 24 hours 39.2. Wbc 4.57 (previously 14.52) Hgb 10.4 Creatinine 0.68 Urinalysis suspicious for infection, urine culture with more than three types of organisms present, all high counts. Blood culture x1 with gram negative bacilli, currently on IV Cefepime. Denies additional urologic concerns today. Review of Systems Constitutional: as per Subjective / HPI and + fever; no chills Gastrointestinal: as per Subjective / HPI; no nausea and no vomiting Genitourinary: as per Subjective / HPI Neurologic: as per Subjective / HPI Physical Exam Constitutional: well developed and well nourished; no acute distress and not ill appearing Respiratory: normal respiratory effort and able to speak in complete sentences; no respiratory distress and no audible wheezes Gastrointestinal (Abdomen): Inspection/Auscultation: abdomen normal to inspection; abdomen not distended Percussion/Palpation: abdomen soft; abdomen nontender and no guarding Psychiatric: Orientation: alert, oriented x 3 and cooperative Affect: euthymic affect Genitourinary: no CVA tenderness Results & Data ([facility]) Vital Signs (Past 12 Hours) Vital Signs Temp Pulse Resp BP BP Pulse Ox 07/15/20 07:14 36.9 C 72 18 119/78 96 07/15/20 03:48 37.0 C 88 14 126/79 97 07/14/20 23:52 37.0 C 94 H 14 111/66 96 07/14/20 22:41 37.6 C H 07/14/20 21:40 38.6 C H 106 H 94 PG Care Time/CCT Total # of Minutes Spent Total Time Spent with Patient: Total time spent is greater than 50% in coordination of care (as documented) at patient's floor/unit and/or counseling patient: Coding Level of Care Code 79817 Subseq Hosp Care Lvl 2 Diagnoses Calculus of distal right ureter N20.1 Urinary tract infection N39.0; R31.9 Hematuria presence: with hematuria Urinary tract infection type: site unspecified (1) Urinary tract infection Hematuria presence: with hematuria Urinary tract infection type: site unspecified Qualified Code(s): N39.0 - Urinary tract infection, site not specified; R31.9 - Hematuria, unspecified
--- NOTE | 2020-07-15 13:44 | Discharge Summary ---
Date of Service July 15, 2020 Admission HPI Per Admitting Provider The patient is a 30-year-old female with a past medical history including irritable bowel syndrome, morbid obesity and depression. She presented to the emergency department earlier today due to right lower quadrant pain, and was found to have a 4 mm distal right obstructing stone near the UVJ. She was discharged to home, and later on the day developed a temperature, and with worsening pain, presented to the ED for assessment. Dr. Gallagher from urology was consulted, who took the patient to the ED for treatment. Admission Exam Per Admitting Provider The patient is awake, alert and oriented 3, well developed and well nourished, normocephalic and atraumatic, lying in bed and in no acute distress. HEENT--PERRL, EOMI, mucous membranes and oropharynx dry. Neck--supple. No JVD. No bruits. Thyroid normal, trachea midline, no adenopathy. Heart--normal S1 and S2. No murmurs, rubs or gallops. Lungs--clear bilaterally, no respiratory distress, no accessory muscle use. Abdomen--normal bowel sounds and soft. Tender right flank and right lower quadrant. Nondistended. Morbidly obese Extremities--no cyanosis or clubbing. No edema. Dermatologic--normal skin turgor, normal color, no abnormal lymph nodes, no rash. Neurologic--cranial nerves II through XII grossly intact. Rheumatologic--normal range of motion. Psychiatric--normal affect. Principal Diagnosis ureterolithiasis, pyelonephritis, bacteremia, sepsis Discharge Exam Constitutional well developed and well nourished; no acute distress Eyes PERRL, conjunctivae normal, anicteric sclerae ENMT external ear and nose normal, oropharynx normal Respiratory normal respiratory effort, lungs clear to auscultation Cardiovascular RRR, no murmur, no edema Gastrointestinal (Abdomen) normal bowel sounds, soft, nontender, no hepatosplenomegaly Skin no rashes, warm and dry Psychiatric A+Ox3, euthymic affect Genitourinary no CVA tenderness Discharge Data Allergies Allergy/AdvReac Type Severity Reaction Status Date / Time No Known Allergies Allergy Verified 07/13/20 22:47 Consultations 07/14/20 00:01 ED Decision to Admit Stat 07/14/20 01:27 Consult Urology Routine Procedures Performed Operation Date: 07/14/20 02:00 Actual Procedures p Cystoscopy, Right Ureteral Stent Placement(Right) - Jignesh Gallagher MD Ordered Studies 07/14/20 01:21 FL KUB Routine 07/14/20 02:56 FL fluoroscopy <1hr Routine Hospital Course (1) Calculus of distal right ureter: Patient is a 30 year old female with PMHx Depression and IBS that presented with known calculus of distal R ureter, returning to the ED with septic like appearance, inability to control pain while at home, and intractable nausea vomiting. Calculus of Distal R Ureter with likely Pyelonephritis -4mm stone noted at the R vesicular-ureteral junction on CT abdomen pelvis -UA Nitrate +, 2+ Blood, 4+ Bacteria -Urine culture with multiple organisms, suspect E. Coli infection in addition to skin ronit from collection -- growing gram - bacilli, cultures pending but will call patient with results -In ED given Cefepime and 2L NSS bolus -Urology consulted -S/P Emergent Cystoscopy and stent placement of the R ureter on 07/14/20 -Has yet to pass stone, continue to strain urine after discharge -Started on IV Rocephin 2g QD, transitioned to PO Cefdinir for completion of 14 day course -Pain inpatient was controlled with Dilaudid, Toradol, Tylenol -Nausea controlled with Zofran and Phenergan IBS -Pepcid 20mg q12h Depression -Continued home Zoloft 50mg QHS Total Time Total Time Spent Total Time Spent (In Minutes): <30 Discharge Plan Discharge Items Patient Disposition: Home - Self-Care Reason For Visit: DISTAL R URETERAL STONE WITH MILD R HYDRO Discharge Diagnosis: Sepsis secondary to Pyelonephritis secondary to R ureteral stone with mild hydronephrosis Activity: Per Instructions section Non-emergency contact: Primary Care Provider and Urologist Call non-emergency contact if: you have any medication questions Follow-up/Referrals: Jignesh Gallagher MD [Physician] - (Office will call) Johana Vallejo PA-C [Physician Scrap Kettle Tender] - 07/26/20 10:00 am PCPSOLANGE [Primary Care Provider] - Addtl Attending Provider Instructions: Renée, It was our pleasure caring for you at [facility] from 07/13- 07/15/20. During your stay, there was concern that you had become septic secondary to the kidney stone in your right ureter causing an obstruction. You were immediately seen by Urology who had placed a stent to allow urine to bypass the stone. You were also started on IV antibiotics for treatment of the infection and your pain and nausea were controlled with IV medications. Today you noted that you were feeling significantly better and ready to go home. We will continue to monitor your blood cultures to ensure that the antibiotic you are being prescribed treats your current infection. Please see below for following instructions: -You are being prescribed an antibiotic Cefdinir 300mg twice a day by mouth for 12 days, your first dose is tonight -Zofran 4mg every 8 hours as needed for nausea -Can utilize over the counter Aleve or Tylenol as needed as well for pain -Follow up with your PCP next Sunday07/19/20 -Follow up with Urology on 07/26/20 Addtl Party Chief Provider Instructions: Please take all medications as prescribed. We will contact you regarding an appointment with the urology service. Please call our office at [phone] with any questions, concerns or need to reschedule appointments for any reason. We are happy to assist you. While you have a ureteral stent in place: Some discomfort is normal. Certain movements may trigger pain or a feeling that you need to urinate. You may also feel mild soreness or pressure before or during urination. These symptoms should go away a few days after the stent is r emoved. Your urine may be slightly pink or red. This is due to bleeding caused by minor irritation from the stent. This may happen on and off while you have the stent, it is not harmful and is to be expected. Medication to help minimize discomfort or bladder spasms, or to prevent infection may be prescribed. Take this as directed. Drink plenty of fluids to help flush out your urinary tract. If you go home with a catheter, wash with soapy water and a fresh washcloth twice daily. We recommend mild bar soap such as Dial or Dove. How long will you need a stent? Your stone was not treated during this hospital stay. The stent will remain in place until we treat your stone. The stent is often taken out after the blockage in the ureter is treated or the ureter has healed. This may take 1-2 weeks, or longer. If a stent is needed for a longer period of time, it may need to be exchanged every few months. Likely prior to your followup appointment you will be asked to get an X-ray, please complete this the night before or morning of your appointment. When to call [facility] at [phone]: Your urine contains heavy blood clots You are constantly leaking urine Fever of 101F or higher, chills, nausea, or vomiting Your pain is not relieved with medication The end of the stent comes out of your urethra Pending Studies at Discharge: No Stand-Alone Forms: My [facility] Flocasts, Work/School Release (Inpt), Smoking Cessation Medications and DC Order Prescriptions: New ondansetron HCl [Zofran] 4 mg tablet 4 mg PO Q8H 14 Days Qty: 42 RF: 2 cefdinir 300 mg capsule 300 mg PO BID 12 Days Qty: 24 RF: 0 Continued sertraline 50 mg tablet 50 mg PO HS RF: 0 oxycodone 5 mg tablet 5 mg PO Q4H PRN (Reason: pain) Qty: 15 RF: 0 Discharge Orders: Discharge Order (Routine); Ordered 07/15/20 Ordered By: Yoni Bobby/Other Patient Handouts: Understanding Kidney Stones Admission Data Admit Date/Time: 07/14/20 00:53 Attending Provider: Jean Escobar Admit Provider: Buck Rodriguez Primary Care Provider: PCP,NO Other Providers: Buck Rodriguez ; Jignesh Gallagher Other Interventions: Discharge Summary Assessment (RN) Last Done: 07/15/20 14:23 Supervising Physician Co-Signing Physician Notes I personally examined the patient and verified all patiño points of history and exam, discussed case, and agree with decision making with Dr Cloud. Feeling considerably better and would like to go home. Asked very good questions about ongoing care all of which were answered to the best of my ability. vitals noted nad. heent nc at mmm breathing unlabored no accessory muscles good effort skin no rashes no pallor or icterus ureterolithiasis/UTI/sepsis/presumed pyelonephritis related to stone/UTI - improving. Clinically appears stable for home. Unsurprisingly she is bacteremic secondary to the sepsis from her obstructing kidney stone. Currently it is speciate and simply has gram-negative bacilliwe discussed that this will take possibly through today or tomorrow to have final identification and sensitivities. In that respect we discussed optionsthelma is getting better on current treatment (was changed to cefepime last night, but had predominantly been being treated with ceftriaxone)and it is highly likely that a similar antibiotic such as cefdinir will be fine. Given her clinical progress it would be reasonable to send her home on cefdinir with close follow-up of cultures, and switch of antibiotics or return to hospital if necessary based on final sensit ivities. We also discussed that it would be very reasonable to stay in the hospital pending final sensitivities while she is on IV antibiotics. She was very desirous of going home, and opted for the former. We discussed that we will call her with her culture results once they are finalized. She is to return with any worsening. Otherwise outpatient urology follow-up otherwise as above Resident Activity Tracking Resident Involvement: Resident Care Provided Care Provided: Adult Hospital Medicine
[2020-07-15 14:24] VITALS: BP 126/79; PULSE 93
--- NOTE | 2020-07-15 18:29 | Billing Data ---
Date of Service July 15, 2020 Coding Level of Care Code D/C Day Management <30 mins
[2020-07-15] MEDS ORDERED: FAMOTIDINE 20 MG TAB PO SCH (21:00)
== END 2020-07-15 15:13 | disposition home or self-care (01) ==
LOC: ED 22:21 → 3N 07-14 00:53 → SUATTDRO 07-14 00:53 → INTOOBSV 07-14 00:53 → 3N 07-14 01:08